=== PATIENT | male | born 1990 ===

== ENCOUNTER → 2017-12-03 | Outpatient (REF) | payer OTHER ==
[2017-12-03 10:21] LABS: SEMEN APPEARANCE OPAQUE (OPAQUE); SEMEN VISCOSITY LIQUID (LIQUID); SEMEN VOLUME 3.3 ml (4.0-5.0); SPERM ABNORMAL FORMS WBC'S NOTED; SPERM CONCENTRATION 27.2 M/ml (>=15.0); WBC CONCENTRATION >1 M/ml (<=1 M/ml)
[2017-12-03 10:22] LABS: % NORMAL FORMS 8 % (>=4); IMMOTILITY 51 %; NON PROGRESSIVE MOTILITY (c) 15 %; PROGRESSIVE MOTILITY (a) 34 % (>=32); SPERM# 90.6 M/Ejac (>=39); TOTAL FUNCTIONAL 5.8 M/Ejac.; TOTAL MOTILITY 49 % (>=40); TOTAL PROGRESSIVE SPERM 31 M/Ejac.
== END ==
LOC: M LAB REF 10:08
DX: N46.9 Male infertility, unspecified (principal)

== ENCOUNTER → 2017-12-19 | Outpatient (REF) | payer OTHER ==
[2017-12-19 13:25] LABS: SEMEN APPEARANCE OPAQUE (OPAQUE); SEMEN VISCOSITY LIQUID (LIQUID); SEMEN VOLUME 1.2 ml (4.0-5.0)
[2017-12-19 13:26] LABS: % NORMAL FORMS 5 % (>=4); IMMOTILITY 69 %; NON PROGRESSIVE MOTILITY (c) 6 %; PROGRESSIVE MOTILITY (a) 25 % (>=32); SPERM ABNORMAL FORMS WBC'S NOTED; SPERM CONCENTRATION 86.5 M/ml (>=15.0); SPERM# 103.8 M/Ejac (>=39); TOTAL FUNCTIONAL 3.2 M/Ejac.; TOTAL MOTILITY 31 % (>=40); TOTAL PROGRESSIVE SPERM 25.6 M/Ejac.; WBC CONCENTRATION <=1 M/ml (<=1 M/ml)
== END ==
LOC: M LAB REF 12:43
DX: Z31.41 Encounter for fertility testing (principal)
CPT/HCPCS: 89320

== ENCOUNTER → 2017-12-25 | Outpatient (REF) | payer OTHER ==
[2017-12-25 11:30] LABS: SEMEN APPEARANCE OPAQUE (OPAQUE); SEMEN VISCOSITY LIQUID (LIQUID)
[2017-12-25 11:31] LABS: % NORMAL FORMS 14 % (>=4); IMMOTILITY 32 %; NON PROGRESSIVE MOTILITY (c) 11 %; PROGRESSIVE MOTILITY (a) 57 % (>=32); SPERM ABNORMAL FORMS WBC'S NOTED; SPERM CONCENTRATION 40.6 M/ml (>=15.0); SPERM# 81.3 M/Ejac (>=39); TOTAL FUNCTIONAL 13.9 M/Ejac.; TOTAL MOTILITY 68 % (>=40); TOTAL PROGRESSIVE SPERM 46.5 M/Ejac.; WBC CONCENTRATION >1 M/ml (<=1 M/ml)
== END ==
LOC: M LAB REF 10:20
DX: Z31.41 Encounter for fertility testing (principal)
CPT/HCPCS: 89320